=== PATIENT | female | born 1955 | race Two or more races ===

== ENCOUNTER 2016-04-22 00:45 | Inpatient (IN) | payer MEDICAID ==
[2016-04-22] VITALS (52 sets, daily range): BP systolic 87–123; BP diastolic 43–81
[~2016-04-22] VITALS: Ht 160 cm; Wt 59.9 kg
[~2016-04-22 00:45] MED LIST: ACID1TAB12 PO; AMIN30LI4 PO; AMLO10TA2 PO; AMOX-430 PO; ATOR40TA PO; BLOO-668 IN; CALC-108 PO; CALC667C PO; DEXT15DR6 EACHEYE; HYDR-3028 PO; INSU100V27 SQ; INSU3INS6 SQ; LACT10SO PO; LEVO200T8 PO; METO25TA6 PO; MINO2.5T2 PO; PANT20TA3 PO
[2016-04-22] MEDS ORDERED: HALOPERIDOL LACTATE INJ 5 MG/ML VIAL IV ONE (01:00)
[2016-04-22] MEDS ORDERED: CEFTRIAXONE 1GM BAG (ER ONLY) 50 ML IV ONE ×2 (01:00→01:06)
[2016-04-22] MEDS ORDERED: VANCOMYCIN 1 GM in IV D5W 250 ML IV ONE (01:00)
[2016-04-22] MEDS ORDERED: HALOPERIDOL LACTATE INJ 5 MG/ML VIAL ONE (01:06)
[2016-04-22] MEDS ORDERED: IV SET PRIMARY 1 EA INFUS.SET MC ONE ×3 (01:06→03:59)
[2016-04-22 01:40] LABS: CALCIUM, SERUM 8.6 mg/dL (8.5-10.1); CREATININE 4.1 mg/dL (0.6-1.3); POTASSIUM 4.5 mmol/L (3.5-5.1)
[2016-04-22] MEDS ORDERED: IV NS 0.9% 500 ML IV ONE ×3 (01:42→09:31)
[2016-04-22 01:44] LABS: TROPONIN I 0.088 ng/mL (0.00-0.056)
[2016-04-22 01:46] LABS: LACTIC ACID 1.1 mmol/L (0.4-2.0)
[2016-04-22 01:51] LABS: HEMATOCRIT 23 % (33-45); HEMOGLOBIN 7.1 g/dL (11.5-14.8); MEAN CORPUSCULAR HEMOGLOBIN 26 PG (26.0-33.0); MEAN CORPUSCULAR HGB CONC 31 g/dl (31.0-36.0); MEAN CORPUSCULAR VOLUME 83 fL (82-100); PLATELET COUNT (AUTO) 585 /CMM (150-450); RED BLOOD CELL COUNT(AUTO) 2.74 MIL/uL (4.0-5.2)
[2016-04-22 01:53] LABS: ALBUMIN 1.6 g/dL (3.4-5.0); BILIRUBIN,DIRECT 0.2 mg/dL (0.0-0.2); BILIRUBIN,TOTAL 0.5 mg/dL (0.2-1.0); INDIRECT BILIRUBIN 0.3 mg/dL (0.0-1.1); TOTAL PROTEIN, SERUM 6.7 g/dL (6.4-8.2)
[2016-04-22] MEDS ORDERED: IV NS 0.9% 1,000 ML BAG IV ONE ×2 (02:00→04:00)
[2016-04-22 02:02] LABS: WHITE BLOOD COUNT (AUTO) 30.8 K/uL (4.3-11.0)
[2016-04-22 02:12] LABS: INR 1.05 (0.87-1.13); PROTHROMBIN TIME 11.3 SECS (9.5-12.7)
[2016-04-22] MEDS ORDERED: IV D5W 250 ML IV ONE (02:29)
[2016-04-22] MEDS ORDERED: IV SET PRIMARY PUMP SET 1 EA INFUS.SET MC ONE ×3 (02:29→09:31)
[2016-04-22] MEDS ORDERED: VANCOMYCIN 1 GM VIAL ONE (02:29)
[2016-04-22 04:13] LABS: ANISOCYTOSIS 1+; BAND % (MANUAL) 2 % (0.0-5.0); BASOPHILS % (MANUAL) 0 % (0.0-2.0); EOSINOPHILS % (MANUAL) 0 % (0-4); HYPOCHROMASIA 1+; LYMPHOCYTES % (MANUAL) 1 % (16-48); PLATELET ESTIMATE INCREASED
[2016-04-22] MEDS ORDERED: IV D5W 500 ML IV ONE (05:01)
[2016-04-22] MEDS ORDERED: NOREPINEPHRINE 4 MG/4 ML AMPUL IV ONE (05:11)
[2016-04-22] MEDS ORDERED: NOREPINEPHRINE 8 MG in IV D5W 500 ML IV PRN ×4 (05:30→10:00)
[2016-04-22] MEDS ORDERED: ONDANSETRON HCL/PF 4 MG/2 ML VIAL IVP PRN (07:30)
[2016-04-22] MEDS ORDERED: OLANZAPINE 10 MG VIAL IM ONE (08:00)
[2016-04-22] MEDS ORDERED: FEE PK DOSING 1 MIN EA MC ONE ×2 (09:10→18:14)
[2016-04-22] MEDS ORDERED: VANCOMYCIN POST DIALYSIS 500MG IV PRN ×2 (09:30)
[2016-04-22] MEDS: PIPERACILLIN /TAZOBACTAM 2.25 G in IV D5W 50 ML IV SCH ×2 (09:30→16:45)
[2016-04-22] MEDS ORDERED: PANTOPRAZOLE 40 MG TABLET.DR PO SCH (09:30)
[2016-04-22] MEDS ORDERED: BLOOD IV SET 1 EA INFUS.SET MC ONE (09:31)
[2016-04-22] MEDS: PANTOPRAZOLE 40 MG VIAL IV SCH (09:34)
[2016-04-22] MEDS ORDERED: SECONDARY IV SET 1 EA INFUS.SET MC ONE (09:36)
[2016-04-22] MEDS: HEPARIN SODIUM, PORCINE 5000 UNITS/1 ML VIAL SQ SCH ×2 (09:41→20:54)
[2016-04-22] MEDS ORDERED: Z GUARD REMEDY 4 OZ OINT TP PRN (10:30)
[2016-04-22 11:05] LABS: PHOSPHORUS 5.8 mg/dL (2.5-4.9)
[2016-04-22] MEDS: NEOMY SULF/BACITRAC ZN/POLY 15 GM TUBE TP SCH (11:21)
[2016-04-22] MEDS ORDERED: PIPERACILLIN /TAZOBACTAM 2.25 G in IV D5W 50 ML IV SCH (12:00)
[2016-04-22] MEDS ORDERED: MORPHINE SULFATE INJ 2 MG/ML DISP.SYRIN IV STA (14:19)
[2016-04-22] MEDS ORDERED: EPOETIN ALFA (10,000 UNIT) 10,000 UNIT/ML VIAL SQ ONE (15:00)
[2016-04-22] MEDS: DAKINS QUARTER STRENGTH (0.125%) 480 ML BOTTLE TOP SCH (16:45)
[2016-04-22] MEDS: SILVER SULFADIAZINE CREAM 25 GM TUBE TP SCH (16:47)
[2016-04-22] MEDS ORDERED: DOSING PER PHARMACY-AMIKACI IV XX PRN (18:00)
[2016-04-22] MEDS ORDERED: HEPARIN SODIUM, PORCINE 5000 UNITS/1 ML VIAL IV PRN (19:00)
[2016-04-22] MEDS ORDERED: AMIKACIN 400 MG in IV D5W 100 ML IV ONE (19:00)
[2016-04-22] MEDS ORDERED: HEPARIN SODIUM, PORCINE 1000 UNIT/1 ML VIAL IV ONE (19:00)
[2016-04-22] MEDS ORDERED: VANCOMYCIN 500 MG in IV D5W 100 ML IV PRN (21:00)
[2016-04-23] VITALS (25 sets, daily range): BP systolic 88–144; BP diastolic 26–73
[2016-04-23] MEDS: PIPERACILLIN /TAZOBACTAM 2.25 G in IV D5W 50 ML IV SCH ×3 (00:53→17:03)
[2016-04-23] MEDS: diphenhydrAMINE HCL ELIX 25 MG/10 ML UDC PO PRN (00:53)
[2016-04-23 04:50] LABS: BILIRUBIN,TOTAL 0.5 mg/dL (0.2-1.0); CALCIUM, SERUM 7.6 mg/dL (8.5-10.1); CREATININE 3.5 mg/dL (0.6-1.3); PHOSPHORUS 3.8 mg/dL (2.5-4.9); POTASSIUM 3.7 mmol/L (3.5-5.1); TOTAL PROTEIN, SERUM 5.8 g/dL (6.4-8.2)
[2016-04-23 04:57] LABS: DIFF TOTAL % 100 %; EOSINOPHILS # (AUTO) 0.1 /CMM (0.0-0.7); EOSINOPHILS % (AUTO) 0.5 % (0.0-6.0); HEMATOCRIT 26 % (33-45); HEMOGLOBIN 8.6 g/dL (11.5-14.8); LYMPHOCYTES # (AUTO) 0.5 /CMM (0.8-4.8); MEAN CORPUSCULAR HEMOGLOBIN 28 PG (26.0-33.0); MEAN CORPUSCULAR HGB CONC 33 g/dl (31.0-36.0); MEAN CORPUSCULAR VOLUME 86 fL (82-100); MONOCYTES # (AUTO) 0.9 /CMM (0.1-1.30); MONOCYTES % (AUTO) 3.4 % (2.0-12.0); NEUTROPHILS # (AUTO) 25.3 /CMM (1.8-8.9); NEUTROPHILS % (AUTO) 94.1 % (43.0-81.0); PLATELET COUNT (AUTO) 389 /CMM (150-450); RED BLOOD CELL COUNT(AUTO) 3.05 MIL/uL (4.0-5.2); WHITE BLOOD COUNT (AUTO) 26.9 K/uL (4.3-11.0)
[2016-04-23 05:05] LABS: ALBUMIN 1.4 g/dL (3.4-5.0)
[2016-04-23 05:47] LABS: ANISOCYTOSIS 1+; BAND % (MANUAL) 8 % (0.0-5.0); BASOPHILS % (MANUAL) 0 % (0.0-2.0); EOSINOPHILS % (MANUAL) 1 % (0-4); LYMPHOCYTES % (MANUAL) 2 % (16-48); PLATELET ESTIMATE INCREASED
[2016-04-23] MEDS: PANTOPRAZOLE 40 MG VIAL IV SCH (08:29)
[2016-04-23] MEDS: HEPARIN SODIUM, PORCINE 5000 UNITS/1 ML VIAL SQ SCH ×2 (08:29→20:31)
[2016-04-23] MEDS: DAKINS QUARTER STRENGTH (0.125%) 480 ML BOTTLE TOP SCH ×2 (08:30→17:04)
[2016-04-23] MEDS: SILVER SULFADIAZINE CREAM 25 GM TUBE TP SCH ×2 (08:30→17:04)
[2016-04-23] MEDS: NEOMY SULF/BACITRAC ZN/POLY 15 GM TUBE TP SCH (08:30)
[2016-04-23] MEDS ORDERED: *INSULIN REGULAR(HUMULIN R)HUM 100 UNIT/ML VIAL SQ PRN (09:30)
[2016-04-23] MEDS ORDERED: DEXTROSE 50%-WATER 50 ML DISP.SYRIN IV PRN (09:30)
[2016-04-23] MEDS: BLOOD SUGAR DIAGNOSTIC 1 EACH STRIP VI SCH ×4 (11:36→21:49)
[2016-04-23] MEDS: INSULIN REGULAR, HUMAN 100 UNIT/ML 3 ML VIAL SQ PRN ×2 (11:39→17:22)
[2016-04-23] MEDS: LACTOBACILLUS RHAMNOSUS GG 1 EACH CAP.SPRINK PO SCH (17:03)
[2016-04-23] MEDS ORDERED: AMIKACIN 300 MG in IV D5W 100 ML IV PRN (19:00)
[2016-04-23] MEDS: HYDROCODONE/APAP 5/325MG 1 EACH TABLET PO PRN (20:30)
[2016-04-24] VITALS (20 sets, daily range): BP systolic 101–150; BP diastolic 51–70
[2016-04-24] MEDS ORDERED: IV NS 0.9% 250 ML IV ONE ×2 (00:49→21:30)
[2016-04-24] MEDS: PIPERACILLIN /TAZOBACTAM 2.25 G in IV D5W 50 ML IV SCH ×2 (00:53→08:34)
[2016-04-24] MEDS: diphenhydrAMINE HCL ELIX 25 MG/10 ML UDC PO PRN (00:58)
[2016-04-24] MEDS ORDERED: IV NS 0.9% 250 ML IV PRN (01:00)
[2016-04-24] MEDS: HYDROCODONE/APAP 5/325MG 1 EACH TABLET PO PRN ×2 (03:27→13:13)
[2016-04-24 05:28] LABS: CALCIUM, SERUM 7.7 mg/dL (8.5-10.1); CREATININE 4.1 mg/dL (0.6-1.3); PHOSPHORUS 3.6 mg/dL (2.5-4.9)
[2016-04-24 05:33] LABS: DIFF TOTAL % 100 %; EOSINOPHILS # (AUTO) 0.4 /CMM (0.0-0.7); HEMATOCRIT 26 % (33-45); HEMOGLOBIN 8.7 g/dL (11.5-14.8); LYMPHOCYTES % (AUTO) 5.2 % (20.0-44.0); MEAN CORPUSCULAR HEMOGLOBIN 28 PG (26.0-33.0); MEAN CORPUSCULAR HGB CONC 33 g/dl (31.0-36.0); MEAN CORPUSCULAR VOLUME 85 fL (82-100); MONOCYTES # (AUTO) 0.8 /CMM (0.1-1.30); MONOCYTES % (AUTO) 3.8 % (2.0-12.0); NEUTROPHILS # (AUTO) 17.8 /CMM (1.8-8.9); PLATELET COUNT (AUTO) 330 /CMM (150-450); RED BLOOD CELL COUNT(AUTO) 3.07 MIL/uL (4.0-5.2)
[2016-04-24 06:13] LABS: ANISOCYTOSIS 1+; PLATELET ESTIMATE ADEQUATE
[2016-04-24] MEDS: BLOOD SUGAR DIAGNOSTIC 1 EACH STRIP VI SCH ×4 (07:33→22:58)
[2016-04-24] MEDS: PANTOPRAZOLE 40 MG VIAL IV SCH (08:31)
[2016-04-24] MEDS: LACTOBACILLUS RHAMNOSUS GG 1 EACH CAP.SPRINK PO SCH ×2 (08:32→17:28)
[2016-04-24] MEDS: HEPARIN SODIUM, PORCINE 5000 UNITS/1 ML VIAL SQ SCH ×2 (08:32→22:08)
[2016-04-24] MEDS: DAKINS QUARTER STRENGTH (0.125%) 480 ML BOTTLE TOP SCH ×2 (08:34→17:28)
[2016-04-24] MEDS: NEOMY SULF/BACITRAC ZN/POLY 15 GM TUBE TP SCH (08:34)
[2016-04-24] MEDS: SILVER SULFADIAZINE CREAM 25 GM TUBE TP SCH ×2 (08:34→17:28)
[2016-04-24] MEDS ORDERED: IV NS 0.9% 1,000 ML BAG IV ONE (09:17)
[2016-04-24] MEDS ORDERED: IV NS 0.9% 1,000 ML BAG IV PRN (09:30)
[2016-04-24] MEDS: INSULIN REGULAR, HUMAN 100 UNIT/ML 3 ML VIAL SQ PRN (11:54)
[2016-04-24] MEDS ORDERED: EPOETIN ALFA (10,000 UNIT) 10,000 UNIT/ML VIAL SQ ONE (15:00)
[2016-04-24] MEDS ORDERED: RIFAMPIN 600 MG in IV NS 0.9% 100 ML IV SCH (20:00)
[2016-04-24] MEDS ORDERED: SECONDARY IV SET 1 EA INFUS.SET MC ONE ×2 (21:28→22:32)
[2016-04-24] MEDS ORDERED: IV SET PRIMARY PUMP SET 1 EA INFUS.SET MC ONE (21:30)
[2016-04-24] MEDS: METRONIDAZOLE 500MG/ NS 100ML 500 MG in PREMIX 1 EA IV SCH (21:40)
[2016-04-25] MEDS: HYDROCODONE/APAP 5/325MG 1 EACH TABLET PO PRN (02:39)
[2016-04-25] MEDS: METRONIDAZOLE 500MG/ NS 100ML 500 MG in PREMIX 1 EA IV SCH ×2 (05:05→13:15)
[2016-04-25] MEDS: BLOOD SUGAR DIAGNOSTIC 1 EACH STRIP VI SCH ×3 (06:07→17:14)
[2016-04-25 07:58] LABS: BASOPHILS % (AUTO) 0.1 % (0.0-2.0); DIFF TOTAL % 100 %; EOSINOPHILS # (AUTO) 0.3 /CMM (0.0-0.7); EOSINOPHILS % (AUTO) 1.3 % (0.0-6.0); HEMATOCRIT 27 % (33-45); HEMOGLOBIN 8.6 g/dL (11.5-14.8); LYMPHOCYTES # (AUTO) 1.1 /CMM (0.8-4.8); LYMPHOCYTES % (AUTO) 5.3 % (20.0-44.0); MEAN CORPUSCULAR HEMOGLOBIN 28 PG (26.0-33.0); MEAN CORPUSCULAR HGB CONC 33 g/dl (31.0-36.0); MEAN CORPUSCULAR VOLUME 86 fL (82-100); MONOCYTES # (AUTO) 0.8 /CMM (0.1-1.30); MONOCYTES % (AUTO) 3.8 % (2.0-12.0); NEUTROPHILS # (AUTO) 18.7 /CMM (1.8-8.9); NEUTROPHILS % (AUTO) 89.5 % (43.0-81.0); PLATELET COUNT (AUTO) 277 /CMM (150-450); RED BLOOD CELL COUNT(AUTO) 3.08 MIL/uL (4.0-5.2); WHITE BLOOD COUNT (AUTO) 20.9 K/uL (4.3-11.0)
[2016-04-25 08:00] VITALS: BP 130/63
[2016-04-25 08:10] LABS: CALCIUM, SERUM 7.4 mg/dL (8.5-10.1); CREATININE 2.9 mg/dL (0.6-1.3); POTASSIUM 3.7 mmol/L (3.5-5.1)
[2016-04-25] MEDS: PANTOPRAZOLE 40 MG VIAL IV SCH (08:34)
[2016-04-25] MEDS: LACTOBACILLUS RHAMNOSUS GG 1 EACH CAP.SPRINK PO SCH ×2 (08:34→17:08)
[2016-04-25] MEDS: HEPARIN SODIUM, PORCINE 5000 UNITS/1 ML VIAL SQ SCH (08:35)
[2016-04-25] MEDS: DAKINS QUARTER STRENGTH (0.125%) 480 ML BOTTLE TOP SCH ×2 (08:36→17:06)
[2016-04-25] MEDS: NEOMY SULF/BACITRAC ZN/POLY 15 GM TUBE TP SCH (08:36)
[2016-04-25] MEDS: SILVER SULFADIAZINE CREAM 25 GM TUBE TP SCH ×2 (08:37→17:07)
[2016-04-25 16:00] VITALS: BP 111/55
== END 2016-04-25 19:30 | DRG 720 ==
LOC: ER 00:46 → ICU 06:33 → MED 04-24 16:51
PROVIDERS: ADMIT Internal Medicine; ATTEND Internal Medicine
PROC: 5A1D60Z (ICD-10-PCS; principal; 2016-04-22)
PROC: 30233N1 Transfusion of Nonautologous Red Blood Cells into Peripheral Vein, Percutaneous Approach (ICD-10-PCS; principal; 2016-04-22)
PROC: 0H9NXZZ Drainage of Left Foot Skin, External Approach (ICD-10-PCS; principal; 2016-04-22)
PROC: 0H9MXZZ Drainage of Right Foot Skin, External Approach (ICD-10-PCS; principal; 2016-04-22)
DX: A41.9 Sepsis, unspecified organism (principal); I21.4 Non-ST elevation (NSTEMI) myocardial infarction; R65.21 Severe sepsis with septic shock; E46 Unspecified protein-calorie malnutrition; N18.6 End stage renal disease; I13.0 Hypertensive heart and chronic kidney disease with heart failure and stage 1 through stage 4 chronic kidney disease, or unspecified chronic kidney disease; L03.115 Cellulitis of right lower limb; I50.9 Heart failure, unspecified; E87.1 Hypo-osmolality and hyponatremia; D63.8 Anemia in other chronic diseases classified elsewhere; E78.5 Hyperlipidemia, unspecified; E11.65 Type 2 diabetes mellitus with hyperglycemia; E11.52 Type 2 diabetes mellitus with diabetic peripheral angiopathy with gangrene; E11.22 Type 2 diabetes mellitus with diabetic chronic kidney disease; I25.10 Atherosclerotic heart disease of native coronary artery without angina pectoris; K21.9 Gastro-esophageal reflux disease without esophagitis; E83.51 Hypocalcemia; E03.9 Hypothyroidism, unspecified; L02.612 Cutaneous abscess of left foot; L02.611 Cutaneous abscess of right foot; Z99.2 Dependence on renal dialysis; I73.9 Peripheral vascular disease, unspecified; L02.619 Cutaneous abscess of unspecified foot; L03.116 Cellulitis of left lower limb; M85.80 Other specified disorders of bone density and structure, unspecified site
CPT/HCPCS: 36415; 70450-TC; 71010-TC; 73630-TC; 80048-TC; 80053-TC; 80061-TC; 80076-TC; 80150; 80202-TC; 82140-TC; 82962-TC; 83605-TC; 83735-TC; 83880; 84100-TC; 84484-TC; 85025-TC; 85730-TC; 86850-TC; 86921-TC; 87040-TC; 87070-TC; 87081-TC; 87400; 90935-TC; 93307-TC; A4216; A4606; A6402; A6403; C1751; C9113; J0278; J0696; J0885; J1630; J1644; J1815; J2270; J2543; J3370; J3490; J7030; J7040; J7050; J7060; P9016-BL; Q0163; Z7610

== ENCOUNTER 2021-01-17 02:33 | Inpatient (IN) | payer MEDICAID ==
[2021-01-17] VITALS (8 sets, daily range): BP systolic 98–130; BP diastolic 45–72
[~2021-01-17] VITALS: Ht 147.3 cm; Wt 64.9 kg
[~2021-01-17 02:33] MED LIST changes: +AMLO-213 PO; -AMLO10TA2 PO; -CALC-108 PO; +CALC-261 PO; -HYDR-3028 PO; +HYDR50TA61 PO; -LACT10SO PO; +LACT10SO3 PO; +PANT20TA17 PO; -PANT20TA3 PO
[2021-01-17] MEDS ORDERED: IV NS 0.9% 500 ML BAG IV ONE (03:00)
[2021-01-17] MEDS ORDERED: PANTOPRAZOLE 80 MG in IV NS 0.9% 100 ML IV ONE (03:00)
--- NOTE | 2021-01-17 03:00 | NUR ---
pt bibra c/o blood in the stool, pt a/a/o x4, placed on monitor. 2 iv lines inserted.
[2021-01-17] MEDS ORDERED: PANTOPRAZOLE 40 MG VIAL ONE (03:11)
[2021-01-17] MEDS ORDERED: AMIODARONE 150 MG/3 ML VIAL IV ONE ×3 (03:16→03:30)
[2021-01-17 03:49] LABS: BASOPHILS % (AUTO) 0.5 % (0.0-2.0); EOSINOPHILS % (AUTO) 1.3 % (0.0-6.0); HEMATOCRIT 23 % (33-45); HEMOGLOBIN 7.4 g/dL (11.5-14.8); LYMPHOCYTES # (AUTO) 1.1 K/uL (0.8-4.8); LYMPHOCYTES % (AUTO) 23.1 % (20.0-44.0); MEAN CORPUSCULAR HGB CONC 32 g/dl (31.0-36.0); MEAN CORPUSCULAR VOLUME 92 fL (82-100); MONOCYTES # (AUTO) 0.4 K/uL (0.1-1.30); MONOCYTES % (AUTO) 8.7 % (2.0-12.0); NEUTROPHILS # (AUTO) 3.2 K/uL (1.8-8.9); NEUTROPHILS % (AUTO) 66.4 % (43.0-81.0); PLATELET COUNT (AUTO) 199 K/uL (150-450); RED BLOOD CELL COUNT(AUTO) 2.49 MIL/uL (4.0-5.2); WHITE BLOOD COUNT (AUTO) 4.8 K/uL (4.3-11.0)
[2021-01-17] MEDS ORDERED: ZOLP5TAB8 PO (04:02)
[2021-01-17] MEDS ORDERED: LEVO50TA8 PO (04:02)
[2021-01-17] MEDS ORDERED: OMEP40CA21 PO (04:02)
[2021-01-17] MEDS ORDERED: MIDO2.5T PO (04:02)
[2021-01-17] MEDS ORDERED: ALEN70TA80 PO (04:02)
[2021-01-17] MEDS ORDERED: APIX5TAB PO (04:02)
[2021-01-17 04:04] LABS: CALCIUM, SERUM 6.2 mg/dL (8.5-10.1); CARBON DIOXIDE 28 mmol/L (21-32); CHLORIDE 95 mmol/L (98-107); CREATININE 5.3 mg/dL (0.6-1.3); GLUCOSE 165 mg/dL (74-106); POTASSIUM 6.1 mmol/L (3.5-5.1); SODIUM SERUM 136 mmol/L (136-145); UREA NITROGEN, BLOOD 54 mg/dL (7-18)
--- NOTE | 2021-01-17 04:11 | NUR ---
SALENAID SWABBED, SENT TO LAB.
[2021-01-17 04:17] LABS: ALANINE AMINOTRANSFERASE 17 U/L (12-78); ALBUMIN 3.1 g/dL (3.4-5.0); ALKALINE PHOSPHATASE 298 U/L (46-116); ASPARTATE AMINOTRANSFERASE 17 U/L (15-37); BILIRUBIN,DIRECT 0.2 mg/dL (0.0-0.2); BILIRUBIN,TOTAL 0.3 mg/dL (0.2-1.0); LIPASE 123 U/L (73-393); TOTAL PROTEIN, SERUM 6.7 g/dL (6.4-8.2)
[2021-01-17 04:28] LABS: MAGNESIUM 1.9 mg/dL (1.8-2.4); PHOSPHORUS 6.7 mg/dL (2.5-4.9)
[2021-01-17] MEDS ORDERED: DEXTROSE 50%-WATER 50 ML DISP.SYRIN IV ONE (04:30)
[2021-01-17] MEDS ORDERED: SODIUM BICARBONATE SYR 50 MEQ/50 ML DISP.SYRIN IV ONE (04:30)
[2021-01-17] MEDS ORDERED: SODIUM POLYSTYRENE SULFONATE 15 G/60 ML BOTTLE PO ONE (04:30)
[2021-01-17] MEDS ORDERED: INSULIN REGULAR, HUMAN 100 UNIT/ML 10 ML VIAL IV ONE (04:30)
[2021-01-17] MEDS ORDERED: SODIUM POLYSTYRENE SULFONATE 15 G/60 ML BOTTLE ONE (04:44)
[2021-01-17] MEDS ORDERED: Sodium Bicarbonate 50 MEQ/50 ML VIAL IV ONE (04:44)
[2021-01-17] MEDS ORDERED: DEXTROSE 50%-WATER 50 ML DISP.SYRIN ONE (04:44)
[2021-01-17] MEDS ORDERED: INSULIN REGULAR, HUMAN 100 UNIT/ML 10 ML VIAL ONE (04:45)
[2021-01-17] MEDS ORDERED: SODIUM BICARBONATE SYR 50 MEQ/50 ML DISP.SYRIN ONE (04:53)
--- NOTE | 2021-01-17 05:14 | NUR ---
DR QASIM WATTS
--- NOTE | 2021-01-17 05:20 | NUR ---
DR MEDINA ON THE PHONE W/ DR TRIPP
[2021-01-17 05:31] LABS: LYMPHOCYTES % (MANUAL) 25 % (16-48); MONOCYTES % (MANUAL) 6 % (0-11.0); NEUTROPHILS % (MANUAL) 68 (42-76); REACTIVE LYMPHOCYTES 1 % (0-0)
[2021-01-17] MEDS ORDERED: FERR325T23 PO (05:34)
[2021-01-17] MEDS ORDERED: CALC1POW43 PO (05:34)
[2021-01-17] MEDS ORDERED: CALC-494 PO ×2 (05:34)
[2021-01-17] MEDS ORDERED: AMIN30LI27 PO (05:34)
[2021-01-17] MEDS ORDERED: INSU100V7 SQ (05:34)
--- NOTE | 2021-01-17 06:30 | NUR ---
RN NOTE RECEIVED PATIENT VIA GURNEY. TRANSFERRED TO BED WITH NO INJURY. A/OX3, YAKUT SPEAKING. TOLERATING ROOM AIR. RESPIRATIONS ARE EVEN AND UNLABORED. NO S/S SOB NOTED. NO C/O PAIN AT THIS TIME. IN NO APPARENT DISTRESS. EXTERNAL TELE MONITOR APPLIED, IV ACCESS IN RIGHT HAND #20 AND RAC#20 PATENT AND SALINE LOCKED. BED IS LOW AND LOCKED, HOB FLAT, SIDE RAILS UP X2, CAROLE LIGHT WITHIN REACH, INFORMED ON USE. WILL ENDORSE TO ONCOMING SHIFT.
--- NOTE | 2021-01-17 06:31 | NUR ---
report given to lamine and pt transferred per acls protocol.
--- NOTE | 2021-01-17 06:35 | NUR ---
RN NOTE WAS INFORMED BY OVERNIGHT CAREGIVERAMBER OSWALD THAT PATIENT IS POSITIVE FOR ANTIGENS IN THE BLOOD AND WE ARE AWAITING BLOOD ROM [facility].
[2021-01-17] MEDS ORDERED: INSULIN REGULAR, HUMAN 100 UNIT/ML 3 ML VIAL SQ PRN ×2 (07:00→07:30)
[2021-01-17] MEDS ORDERED: DEXTROSE 50%-WATER 50 ML DISP.SYRIN IV PRN ×4 (07:00→15:00)
[2021-01-17] MEDS ORDERED: DEXTROSE 50%-WATER 50 ML DISP.SYRIN IV SCH ×2 (07:16→07:17)
[2021-01-17] MEDS ORDERED: FOLI0.8T2 PO (07:43)
[2021-01-17] MEDS ORDERED: ASPI-1169 PO (07:43)
[2021-01-17] MEDS ORDERED: INSU100V36 SQ (07:43)
[2021-01-17] MEDS ORDERED: LOPE2CAP PO (07:43)
[2021-01-17] MEDS ORDERED: NA P133E RC (07:43)
[2021-01-17] MEDS ORDERED: INSU100I26 SQ ×2 (07:43)
--- NOTE | 2021-01-17 07:45 | NUR ---
OPERATING MANAGER OPENING NOTE RECEIVED PT A/O X 4 RESTING IN BED ON RA WITH NO S/SX OF RESPIRATORY DISTRESS. PT IS ENGLISH SPEAKING, HOWEVER ABLE TO UNDERSTAND SOME BENGALI. PT IS NPO EXCEPT MEDS. PT HAS A R HAND 20G FLUSHED, PATENT, WITH DRESSING IN TACT AND R AC 20 G FLUSHED, PATENT WITH DRESSING IN TACT. PT ORIENTED TO ROOM, SAFETY MEASURES IN PLACE WITH BED IN LOWEST LOCKED POSITION, CALL LIGHT WITHIN REACH AND BED ALARM ON.
[2021-01-17] MEDS ORDERED: METOPROLOL TARTRATE 25 MG TABLET PO SCH (09:00)
[2021-01-17] MEDS ORDERED: BLOOD SUGAR DIAGNOSTIC 1 EACH STRIP IN SCH ×2 (09:00→12:00)
--- NOTE | 2021-01-17 09:30 | NUR ---
DR. YOON WANTS CHANGE ATTENDING TO DR. PERKINS,ADMITTING MADE AWARE.
--- NOTE | 2021-01-17 09:35 | NUR ---
RN NOTE PT HAS 2 EPISODES OF BLOODY STOOLS. MD NOTIFIED.
--- NOTE | 2021-01-17 10:00 | NUR ---
PORTFOLIO DIRECTOR ERMIAS CALLED VERBALIZED THAT PATIENT IS NOT UNDER DR. PERKINS IT IS EPIC.DR. YOON SPOKE WITH REMIAS ON PHONE.
--- NOTE | 2021-01-17 11:00 | NUR ---
one unit of blood given with hd md aware.
--- NOTE | 2021-01-17 11:05 | NUR ---
DR. YOON MADE AWARE CHANGE TO EPIC PER DR. PERKINS AND DR. BRIGGS.
[2021-01-17] MEDS: PANTOPRAZOLE 40 MG VIAL IV SCH ×2 (12:01→21:12)
--- NOTE | 2021-01-17 13:23 | NUR ---
message left to dr. grande voicemail regarding consult.
--- NOTE | 2021-01-17 14:00 | NUR ---
PATIENT UNABLE TO DRAW BY DELIVERY ENGINEER ,WILL SEND ANOTHER MEDICINE TECH TO DRAW BLOOD.
--- NOTE | 2021-01-17 14:32 | NUR ---
SPOKE WITH DR. YOON AND REFUSED TO GIVE ORDERS VERBALIZED IT IS DR. PERKINS PATIENT PER INSURANCE.
--- NOTE | 2021-01-17 14:33 | NUR ---
DR. PERKINS WILL SEE PATIENT IN AM AND GAVE ORDERS.
--- NOTE | 2021-01-17 14:33 | NUR ---
PATIENT COMPLAIN OF BEING STICK MULTIPLE TIMES DR. PERKINS CANCEL H/H Q4.
--- NOTE | 2021-01-17 14:46 | NUR ---
BRE BERG NOTIFIED REGARDING CHANGING OF MD FOR PT. 3X ,MADE AWARE OF SITUATION.
[2021-01-17] MEDS ORDERED: IV D5/ 0.9% NACL 1,000 ML IV SCH (15:00)
[2021-01-17] MEDS ORDERED: ZOLPIDEM TARTRATE 5 MG TABLET PO PRN (16:00)
[2021-01-17] MEDS: IV 1/2NS 1000 ML 1,000 ML IV PRN (16:03)
[2021-01-17] MEDS: SOD FERRIC GLUC 125 MG in IV NS 0.9% 100 ML IV SCH (16:43)
[2021-01-17] MEDS ORDERED: MIDODRINE HCL (5MG) 5 MG TABLET PO SCH (17:00)
[2021-01-17] MEDS: METOPROLOL TARTRATE 25 MG TABLET PO SCH (17:05)
[2021-01-17] MEDS: BLOOD SUGAR DIAGNOSTIC 1 EACH STRIP IN SCH ×2 (17:06→23:08)
--- NOTE | 2021-01-17 17:14 | NUR ---
[facility] H/H RESULT STILL PENDING.
[2021-01-17 17:20] LABS: HEMATOCRIT 26 % (33-45); HEMOGLOBIN 8.6 g/dL (11.5-14.8); MEAN CORPUSCULAR HGB CONC 33 g/dl (31.0-36.0); MEAN CORPUSCULAR VOLUME 91 fL (82-100); PLATELET COUNT (AUTO) 178 K/uL (150-450); RED BLOOD CELL COUNT(AUTO) 2.85 MIL/uL (4.0-5.2); WHITE BLOOD COUNT (AUTO) 3.3 K/uL (4.3-11.0)
--- NOTE | 2021-01-17 17:26 | NUR ---
RELAYED H/H .09/[address] GREGORIO DIA SECOND UNIT PRBC.
--- NOTE | 2021-01-17 18:45 | NUR ---
AUTOMATION AND CONTROL ENGINEER CLOSING NOTE PT IS RESTING COMFORTABLY IN SEMI-FOWLERS POSITION RECEIVING 1/2 NS @50ML/HR IN R AC. PT IS AWAITING MIDLINE INSERTION, WILL NOTIFY ONCOMING SHIFT. PT RECEIVED 1 UNIT PRBC AND PER MD ORDER, 2ND UNIT HELD. PT IS NPO EXCEPT MEDS. RECEIVED HEMODIALYSIS AND 2L REMOVED. PT HAD 2 BOWEL MOVEMENTS ON SHIFT. SAFETY MEASURES IN PLACE WITH BED IN LOWEST LOCKED POSITION, SIDE RAILS UP X3, AND CALL LIGHT WITHIN REACH.
--- NOTE | 2021-01-17 19:30 | NUR ---
RN OPENING NOTE RECEIVED PATIENT IN BED. A/OX3 , PERUVIAN SPEAKING. TOLERATING ROOM AIR. RESPIRATIONS ARE EVEN AND UNLABORED. NO S/S SOB NOTED. NO C/O PAIN AT THIS TIME. IN NO APPARENT DISTRESS. EXTERNAL TELE MONITOR READS SINUS RHYTHM. IV ACCESS IN RAC#20 TENDER, INFORMED PATIENT I WILL REMOVE IV. ROXANA MIDLINE PLACED, CONNECTED TO 1/2NSS@50ML/HR. BED IS LOW AND LOCKED, HOB FLAT, SIDE RIALS UP X2, CALL LIGHT WITHIN REACH. INFORMED PATIENT WE NEED TO COLLECT STOOL.
[2021-01-17] MEDS ORDERED: MIDODRINE HCL 2.5 MG TABLET PO SCH (21:00)
[2021-01-17] MEDS: INSULIN GLARGINE, 100 UNIT/ML CARTRIDGE SQ SCH (21:25)
[2021-01-17] MEDS: INSULIN REGULAR, HUMAN 100 UNIT/ML 3 ML VIAL SQ PRN (23:18)
[2021-01-18] VITALS: BP 113/54
[2021-01-18 04:00] VITALS: BP 100/53
[2021-01-18] MEDS: BLOOD SUGAR DIAGNOSTIC 1 EACH STRIP IN SCH ×4 (05:39→23:08)
[2021-01-18] MEDS: INSULIN REGULAR, HUMAN 100 UNIT/ML 3 ML VIAL SQ PRN (05:46)
--- NOTE | 2021-01-18 06:16 | NUR ---
RN CLOSING NOTE PATIENT RESTING IN BED. A/OX3. REMAINS TOLERATING ROOM AIR. NO SOB. NO PAIN. NO DISTRESS. TELE MONITOR READS SINUS RHYTHM/ SINUS TACH. ROXANA MIDLINE RUNNING 1/2NS@50ML/HR. BED REMAINS LOW AND LOCKED, HOB FLAT, SIDE RIALS UP X2, CALL LIGHT WITHIN REACH. WAS NOT ABLE TO COLLECT STOOL NO BM. WILL ENDORSE TO ONCOMING SHIFT
--- NOTE | 2021-01-18 07:30 | NUR ---
COBOL DEVELOPER NOTES RECEIVED PT RESTING IN FLAT POSITION WITH NO S/SX OF RESPIRATORY DISTRESS. PT HAS 1/2 NS RUNNING @50ML/HR IN RUNNING IN ROXANA MIDLINE.
[2021-01-18 08:00] VITALS: BP 134/80
[2021-01-18] MEDS: PANTOPRAZOLE 40 MG VIAL IV SCH ×2 (08:18→21:59)
[2021-01-18] MEDS: CALCIUM ACETATE 667 MG CAP/TAB PO SCH ×3 (08:19→17:35)
[2021-01-18] MEDS: LEVOTHYROXINE SODIUM 50 MCG TABLET PO SCH (08:19)
[2021-01-18] MEDS: METOPROLOL TARTRATE 25 MG TABLET PO SCH ×3 (08:20→17:35)
[2021-01-18 08:59] LABS: BASOPHILS % (AUTO) 0.5 % (0.0-2.0); EOSINOPHILS % (AUTO) 1.3 % (0.0-6.0); HEMATOCRIT 28 % (33-45); HEMOGLOBIN 9.1 g/dL (11.5-14.8); LYMPHOCYTES # (AUTO) 0.6 K/uL (0.8-4.8); LYMPHOCYTES % (AUTO) 21.9 % (20.0-44.0); MEAN CORPUSCULAR HGB CONC 33 g/dl (31.0-36.0); MEAN CORPUSCULAR VOLUME 93 fL (82-100); MONOCYTES # (AUTO) 0.3 K/uL (0.1-1.30); NEUTROPHILS # (AUTO) 1.9 K/uL (1.8-8.9); NEUTROPHILS % (AUTO) 67.3 % (43.0-81.0); PLATELET COUNT (AUTO) 176 K/uL (150-450); RED BLOOD CELL COUNT(AUTO) 2.96 MIL/uL (4.0-5.2); WHITE BLOOD COUNT (AUTO) 2.9 K/uL (4.3-11.0)
--- NOTE | 2021-01-18 09:03 | NUR ---
WOUND CARE CONSULT: PT PRESENTS WITH LEAH SCORE 19 AND SCARRING TO LEFT HIP/PELVIC AREA, PRESENT ON ADMISSION. PT IS ABLE TO REPOSITION HERSELF IN BED. WILL SEE PRN.
[2021-01-18 09:30] LABS: CALCIUM, SERUM 8.1 mg/dL (8.5-10.1); CREATININE 3.7 mg/dL (0.6-1.3); POTASSIUM 4.1 mmol/L (3.5-5.1)
--- NOTE | 2021-01-18 09:30 | NUR ---
WRAPPER SORTER NOTES PT HAD 1 EPISODE OF BLOODY STOOL. CHANGED AND KEPT DRY. PT TAKEN TO CT OF THE ABDOMEN WO CONTRAST.
[2021-01-18 12:00] VITALS: BP 122/65
[2021-01-18] MEDS: DIGOXIN 0.125 MG TABLET PO SCH (12:59)
[2021-01-18 16:00] VITALS: BP 120/51
[2021-01-18] MEDS: SOD FERRIC GLUC 125 MG in IV NS 0.9% 100 ML IV SCH (17:34)
[2021-01-18] MEDS: IV 1/2NS 1000 ML 1,000 ML IV PRN (17:38)
--- NOTE | 2021-01-18 18:42 | NUR ---
SP[employer] MEMBERSHIP ADVISORS NOTE PT RESTING IN SEMI FOWLERS POSITION WITH NO S/SX OF RESPIRATORY DISTRESS. PT HAS 0.45%NS RUNNING @50ML/HR IN ROXANA ML. PT DIET ADVANCED TO CLEAR LIQUIDS, TOLERATING WELL. SAFETY MEASURES IN PLACE WITH BED IN LOWEST LOCKED POSITION, SIDE RAILS UP X2 AND CALL LIGHT WITH IN REACH.
--- NOTE | 2021-01-18 19:20 | NUR ---
RN NOTE PT RECEIVED IN ED. PT IS ON ROOM AIR SHOWING NO S/S OF RESP DISTRESS/SOB. BREATHING EVEN AND UNLABORED. NO SIGNS OF DISTRESS. PT IS A/OX3-4, GERMAN SPEAKING. NSR ON MONITOR. SKIN INTACT. ON CLEAR LIQUID DIET. IV ACCESS NOTED ON RIGHT UPPER ARM MIDLINE. LINE FLUSHED, PATENT, AND INTACT WITH NO SIGNS OF INFILTRATION. ALL SAFETY MEASURES IMPLEMENTED. CALL LIGHT WITHIN REACH. BED ALARM ON. BED LOCKED AND IN LOWEST POSITION. WILL CONTINUE TO MONITOR AND ASSESS FOR ANY CHANGES DURING SHIFT.
[2021-01-18 20:00] VITALS: BP 139/67
[2021-01-18] MEDS: INSULIN GLARGINE, 100 UNIT/ML CARTRIDGE SQ SCH (22:59)
--- NOTE | 2021-01-18 23:10 | NUR ---
RN NOTE INSULIN LANTUS NOT GIVEN DUE TO BLOOD SUGAR BEING 81. POLICEWOMAN ANNETTE MADE AWARE.
[2021-01-19] VITALS: BP 130/59
[2021-01-19 04:00] VITALS: BP 127/51
[2021-01-19] MEDS: BLOOD SUGAR DIAGNOSTIC 1 EACH STRIP IN SCH ×3 (05:21→18:38)
[2021-01-19 07:06] LABS: BASOPHILS % (AUTO) 0.5 % (0.0-2.0); EOSINOPHILS % (AUTO) 1.4 % (0.0-6.0); HEMATOCRIT 25 % (33-45); HEMOGLOBIN 8.3 g/dL (11.5-14.8); LYMPHOCYTES # (AUTO) 0.6 K/uL (0.8-4.8); LYMPHOCYTES % (AUTO) 21.2 % (20.0-44.0); MEAN CORPUSCULAR HGB CONC 33 g/dl (31.0-36.0); MEAN CORPUSCULAR VOLUME 93 fL (82-100); MONOCYTES # (AUTO) 0.3 K/uL (0.1-1.30); MONOCYTES % (AUTO) 10.6 % (2.0-12.0); NEUTROPHILS # (AUTO) 1.9 K/uL (1.8-8.9); NEUTROPHILS % (AUTO) 66.3 % (43.0-81.0); PLATELET COUNT (AUTO) 166 K/uL (150-450); RED BLOOD CELL COUNT(AUTO) 2.71 MIL/uL (4.0-5.2); WHITE BLOOD COUNT (AUTO) 2.9 K/uL (4.3-11.0)
--- NOTE | 2021-01-19 07:14 | NUR ---
RN NOTE NO CHANGES IN PT CONDITION DURING SHIFT. PT IS ON ROOM AIR SHOWING NO S/S OF RESP DISTRESS/SOB. BREATHING EVEN AND UNLABORED. NO SIGNS OF DISTRESS. PT IS A/OX3-4. IV ACCESS NOTED ON RIGHT UPPER ARM MIDLINE. LINE FLUSHED, PATENT, AND INTACT WITH NO SIGNS OF INFILTRATION. ALL DUE MEDS GIVEN ORDERED. PT KEPT CLEAN AND COMFORTABLE. ALL SAFETY MEASURES IMPLEMENTED. CALL LIGHT WITHIN REACH. BED ALARM ON. BED LOCKED AND IN LOWEST POSITION. WILL ENDORSE TO MORNING SHIFT RN FOR LUIS ANGEL.
[2021-01-19 07:17] LABS: CALCIUM, SERUM 7.3 mg/dL (8.5-10.1); CREATININE 4.5 mg/dL (0.6-1.3); POTASSIUM 4.7 mmol/L (3.5-5.1)
[2021-01-19 08:00] VITALS: BP 147/52
[2021-01-19] MEDS: LEVOTHYROXINE SODIUM 50 MCG TABLET PO SCH (09:00)
[2021-01-19] MEDS: CALCIUM ACETATE 667 MG CAP/TAB PO SCH ×3 (09:00→18:29)
[2021-01-19] MEDS: PANTOPRAZOLE 40 MG VIAL IV SCH ×2 (09:01→21:33)
[2021-01-19] MEDS: METOPROLOL TARTRATE 25 MG TABLET PO SCH ×3 (09:02→18:23)
[2021-01-19 12:00] VITALS: BP 136/47
[2021-01-19] MEDS: DIGOXIN 0.125 MG TABLET PO SCH (14:15)
--- NOTE | 2021-01-19 14:19 | NUR ---
PATIENT RESTING IN AND OUT OF LIGHT SLEEP, DIALYSIS PROVIDED UF = 2400, VS AFTER PROCEDURE 140/54 PULSE 90 , ON ROOM AIR NO S/S OF RESP DISTRESS, NO SOB. BREATHING EVEN AND UNLABORED A/OX3-4. IV ACCESS RIGHT UPPER ARM MIDLINE INTACT PATENT FLUSHING WELL, NO SIGNS OF INFILTRATION. ALL DUE MEDS GIVEN ORDERED. PT KEPT CLEAN AND COMFORTABLE. ALL SAFETY MEASURES IMPLEMENTED. CALL LIGHT WITHIN REACH. BED ALARM ON. BED LOCKED AND IN LOWEST POSITION. ALL MEDS GIVEN NO ASPIRATION NOTED WITH PO MEDICATIONS TOLERATING WELL, BED LOW TO FLOOR WHEELS LOCKED, CALL LIGHT IN REACH
[2021-01-19] MEDS: SOD FERRIC GLUC 125 MG in IV NS 0.9% 100 ML IV SCH (15:47)
[2021-01-19 16:00] VITALS: BP 132/68
[2021-01-19] MEDS ORDERED: PEG 3350/NA SULF,BICARB,CL/KCL 4,000 ML BOTTLE PO ONE (16:00)
[2021-01-19] MEDS: INSULIN REGULAR, HUMAN 100 UNIT/ML 3 ML VIAL SQ PRN (18:39)
--- NOTE | 2021-01-19 19:15 | NUR ---
RN NOTES RECEIVED REPORT FROM MORNING NURSE. PATIENT IN BED A/O X 3 NEPALESE SPEAKING. WITH R UA MIDLINE PATENT FLUSHES WELL. WITH ONGOING IVF OF 1/2 NS @ 50CC/HR. ON CLEAR LIQUIDS. WITH L UA FISTULA + THRILL AND BRUIT. ALL SAFETY MEASURES IN PLACE, HOB ELEVATED, BED ON LOWEST POSITION AND LOCKED. CALL LIGHT WITHIN REACH. VITAL SIGNS TAKEN AND RECORDED. WILL CONTINUE TO MONITOR THE PATIENT
[2021-01-19 20:00] VITALS: BP 110/60
[2021-01-19] MEDS: INSULIN GLARGINE, 100 UNIT/ML CARTRIDGE SQ SCH (22:00)
[2021-01-19] MEDS: IV 1/2NS 1000 ML 1,000 ML IV PRN (22:11)
[2021-01-20] VITALS (12 sets, daily range): BP systolic 104–148; BP diastolic 50–72
--- NOTE | 2021-01-20 | NUR ---
RN NOTES BS 104 MG/DL.
[2021-01-20] MEDS: BLOOD SUGAR DIAGNOSTIC 1 EACH STRIP IN SCH ×4 (00:12→18:27)
--- NOTE | 2021-01-20 06:00 | NUR ---
RN NOTES BS 84 MG/DL
--- NOTE | 2021-01-20 06:22 | NUR ---
RN NOTES PATIENT REMAINS STABLE THE WHOLE SHIFT NO SIGNIFICANT CHANGES IN HEALTH CONDITION. NO SOB, NO DISTRESS NO PAIN NOTED THIS SHIFT.ALL DUE MEDS GIVEN ORDERED. STARTED GOLYTELY FOR POSSIBLE COLONOSCOPY TODAY. ALL SAFETY MEASURES IN PLACE, BED ON LOWEST POSITION AND LOCKED. HOB ELEVATED, CALL LIGHT WITHIN REACH. CONSENT SIGNED @ CHART.ALL NEEDS ATTENDED. ENDORSED
[2021-01-20] MEDS: CALCIUM ACETATE 667 MG CAP/TAB PO SCH ×3 (08:14→17:27)
[2021-01-20] MEDS: LEVOTHYROXINE SODIUM 50 MCG TABLET PO SCH (08:14)
[2021-01-20] MEDS: PANTOPRAZOLE 40 MG VIAL IV SCH ×2 (08:49→21:11)
[2021-01-20] MEDS: METOPROLOL TARTRATE 25 MG TABLET PO SCH ×3 (08:50→17:28)
--- NOTE | 2021-01-20 10:48 | NUR ---
PER [facility] PCR NEGATIVE.
[2021-01-20] MEDS ORDERED: ANESTHESIA TRAY IN PYXIS 1 EA TRAY MC ONE (11:24)
[2021-01-20 12:24] LABS: BASOPHILS % (AUTO) 0.5 % (0.0-2.0); EOSINOPHILS % (AUTO) 1.1 % (0.0-6.0); HEMATOCRIT 24 % (33-45); HEMOGLOBIN 8.1 g/dL (11.5-14.8); LYMPHOCYTES # (AUTO) 0.5 K/uL (0.8-4.8); LYMPHOCYTES % (AUTO) 20.2 % (20.0-44.0); MEAN CORPUSCULAR HGB CONC 33 g/dl (31.0-36.0); MEAN CORPUSCULAR VOLUME 92 fL (82-100); MONOCYTES # (AUTO) 0.2 K/uL (0.1-1.30); MONOCYTES % (AUTO) 8.8 % (2.0-12.0); NEUTROPHILS # (AUTO) 1.7 K/uL (1.8-8.9); NEUTROPHILS % (AUTO) 69.4 % (43.0-81.0); PLATELET COUNT (AUTO) 157 K/uL (150-450); RED BLOOD CELL COUNT(AUTO) 2.65 MIL/uL (4.0-5.2); WHITE BLOOD COUNT (AUTO) 2.5 K/uL (4.3-11.0)
--- NOTE | 2021-01-20 12:34 | NUR ---
dr. grande made aware pt. drink half only of golelytely and pt has a bloody stool per md keep npo now.
[2021-01-20 12:38] LABS: CALCIUM, SERUM 7.2 mg/dL (8.5-10.1); CREATININE 3.4 mg/dL (0.6-1.3); POTASSIUM 4.7 mmol/L (3.5-5.1)
[2021-01-20] MEDS: DIGOXIN 0.125 MG TABLET PO SCH (13:00)
[2021-01-20] MEDS: SOD FERRIC GLUC 125 MG in IV NS 0.9% 100 ML IV SCH ×2 (15:40→16:54)
--- NOTE | 2021-01-20 16:54 | NUR ---
PATIENT TRANSFERRED OUT OF UNIT FOR PROCEDURE TO IDENTIFY WHERE GI - BLEED IS AND HELP REPAIR, PATIENT NEW ORDERS ARE CLEAR LIQUID DIET UNTIL FURTHER NOTICE, 1 UNIT OF PRBC TO BE INFUSED TODAY, THIS IS ORDERED WILL CONIRM WHEN READY TO HEMP FIBER TAKER OFF AND PROVIDE WITH AID OF ASSOCIATE PROFESSOR OF GEOGRAPHY AND WITNESS OF OTHER RN TO ENSURE ALL INFORMATION AND MEDICATIONS AND BLOOD IS CORRECT AMOUNT, DOSE, TYPE, AND RUN ON A FILTERED IV LINE. PATIENT IN BED RESTING AND RECEIVED CONSENT SIGN AGREES TO BLOOD TRANSFUSION., CALL LIGHT IN REACH , LAST BS - 99, WILL CONTINUE TO MONITOR
--- NOTE | 2021-01-20 18:16 | NUR ---
SPOKE WITH JONAS FROM BLOOD BANK PATIENT HAS ANTIBODIES NEED TO BE REDRAWN AND SEND TO [facility].MAY NOT BE AVAILABLE TONITE,DR. PERKINS MADE AWARE.NURSING SUP MADE AWARE.
--- NOTE | 2021-01-20 18:28 | NUR ---
PATIENT BS = 109, LAB CALLED BLOOD IS NOT READY FOR HEALTHCARE FINANCIAL ANALYST, PATIENT HAS ANTIGENS IN BLOOD AND MUST BE ORDERED AND DELIVERED FROM [facility], LAB WILL NOTIFY WHEN READY, MD NOTIFIED AND AWARE, WILL ADVISE WHEN BLOOD ARRIVES AND TRANSFUSION OF 1 UNIT PRBC PROCESS BEGINS, WILL ENDORSE TO ONCOMING RN INFORMATION SO TASK IS PERFORMED AND CARRIED OUT IN A TIMELY MANNER. PT CONSUMED ALL DINNER TRAY AND STATED SHE IS FEELING BETTER AFTER PROCEDURE, SHE IS RESTING PEACEFULLY, RUMIDLINE INTACT FLUSHING PATENT, BED LOW TO FLOOR, ALL WHEELS LOCKED FOR SAFETY, CALL LIGHT IN REACH AND INSTRUCTED WITH CONSUMER SERVICES CONSULTANT IN ITALIAN TO PLS USE CALL LIGHT FOR HELP WHEN NEEDED, DEMONSTRATED ABILITY TO DO SO AND COMPLIANT AT THIS TIME.
--- NOTE | 2021-01-20 19:10 | NUR ---
RN NOTES RECEIVED REPORT FROM MORNING NURSE. PATIENT A/O X3 ENGLISH SPEAKING. WITH MIDLINE PATENT FLUSHES WELL NO INFILTRATION NOTED. WITH L UA FISTULA + THRILL, + BRUIT NOTED. WITH ONGOING IVF OF 1/2 @50CC/HR. NO SOB NO DISTRESS NO PAIN NOTED. S/P COLONOSCOPY COMPLEX WITH RESOLUTION CLIPS, CAUTERIZATION WITH GOLD PROBE. ALL SAFETY MEASURES IN PLACE, HOB ELEVATED, BED ON LOWEST POSITION AND LOCKED. CALL LIGHT WITHIN REACH. WILL CONTINUE TO MONITOR CLOSELY
--- NOTE | 2021-01-20 21:19 | NUR ---
RN NOTES STARTED 1 UNIT PRBC TYPE O POSITIVE. VITAL SIGNS TAKE FOLLOWS BP 104/50 OK 94, RR 20, TEMP 97.8. WILL CONTINUE TO MONITOR CLOSELY.
[2021-01-20] MEDS: INSULIN GLARGINE, 100 UNIT/ML CARTRIDGE SQ SCH (22:00)
[2021-01-21] VITALS: BP 110/72
[2021-01-21 00:10] VITALS: BP 110/72
--- NOTE | 2021-01-21 00:10 | NUR ---
RN NOTES BLOOD TRANSFUSION COMPLETED, NO TRANSFUSION REACTION,NO CONGESTION NOTED AT THIS TIME BS 88MG/DL. WILL CONTINUE TO MONITOR THE PATIENT
[2021-01-21] MEDS: BLOOD SUGAR DIAGNOSTIC 1 EACH STRIP IN SCH ×5 (00:15→23:55)
[2021-01-21] MEDS: IV 1/2NS 1000 ML 1,000 ML IV PRN (00:18)
--- NOTE | 2021-01-21 06:43 | NUR ---
RN CLOSING NOTES PATIENT REMAINS STABLE THE WHOLE SHIFT, NO SIGNIFICANT CHANGES IN HEALTH CONDITION. NO SOB, NO DISTRESS, NO PAIN NOTED. PATIENT A/O X3 BELARUSIAN SPEAKING. ALL DUE MEDS GIVEN ORDERED. FOR HD TODAY. S/P BLOOD TRANSFUSION OF 1 UNIT PRBC TYPE O POS. ALL NEEDS ATTENDED PROMPTLY. KEPT CLEAN AND DRY AT ALL TIMES, ALL SAFETY MEASURES IN PLACE AT ALL TIMES, HOB ELEVATED, BED ON LOWEST POSITION AND LOCKED. CALL LIGHT WITHIN REACH. ENDORSED
--- NOTE | 2021-01-21 07:41 | NUR ---
RN OPENING NOTE RECEIVED PATIENT ASLEEP IN BED, EASY TO AROUSE. A/O X 3 TAMAZIGHT SPEAKING. NO S/SX OF DISTRESS NOTED. ON ROOM AIR, TOLERATING WELL. BREATHING IS EVEN AND UNLABORED; NO SOB NOTED. IV ACCESS SERGIO MIDLINE PATENT AND INTACT WITH 1/2 NS RUNNING @50MLS/HR. SAFETY PRECAUTIONS IN PLACE; BED IN LOW POSITION AND LOCKED, SIDE RAILS UP X2, CALL LIGHT WITHIN REACH. WILL CONTINUE TO MONITOR PATIENT.
[2021-01-21 08:00] VITALS: BP 110/72
[2021-01-21] MEDS: PANTOPRAZOLE 40 MG VIAL IV SCH ×2 (08:29→21:21)
[2021-01-21] MEDS: CALCIUM ACETATE 667 MG CAP/TAB PO SCH ×3 (08:29→17:44)
[2021-01-21] MEDS: LEVOTHYROXINE SODIUM 50 MCG TABLET PO SCH (08:29)
[2021-01-21] MEDS: METOPROLOL TARTRATE 25 MG TABLET PO SCH ×3 (08:33→16:20)
--- NOTE | 2021-01-21 10:59 | NUR ---
HAND CUTTER MARCUS MADE AWARE PATIENT DISCHARGE POST HD TODAY,FF. UP WITH HD NURSE WILL DO LATER TODAY,AMBULANCE ON WILL CALL.WILL ALSO DRAW LABS W/ HD PER DR. PERKINS SINCE PT. REFUSING TO BE STICK.
--- NOTE | 2021-01-21 11:01 | NUR ---
RN NOTE PT REFUSING BLOOD DRAW 2X. DR. PERKINS AND CHARGE NURSE, ASHA MADE AWARE. PER DR. PERKINS, COLLECT BLOOD FOR LABS DURING HD.
[2021-01-21] MEDS: DIGOXIN 0.125 MG TABLET PO SCH (12:22)
[2021-01-21] MEDS ORDERED: HYDROCODONE/APAP 5/325MG TABLET PO PRN (14:00)
[2021-01-21] MEDS ORDERED: SOD FERRIC GLUC 125 MG in IV NS 0.9% 100 ML IV SCH (14:00)
--- NOTE | 2021-01-21 15:45 | NUR ---
STILL AWAITS HD,PER CM AMBULANCE WILL CALL.
[2021-01-21 16:00] VITALS: BP 102/78
[2021-01-21 18:00] LABS: CALCIUM, SERUM 6.8 mg/dL (8.5-10.1); CREATININE 3.4 mg/dL (0.6-1.3); POTASSIUM 4.2 mmol/L (3.5-5.1)
--- NOTE | 2021-01-21 18:27 | NUR ---
H/H PENDING RESULT PER LAB WILL CONTINUE TO FF UP. PT. TOLERATING HEMODIALYSIS.
--- NOTE | 2021-01-21 18:55 | NUR ---
RAIL EQUIPMENT OPERATOR NOTE PATIENT ASLEEP IN BED, EASY TO AROUSE. A/O X 3 BURMESE SPEAKING. CURRENTLY HAVING DIALYSIS AT THIS TIME. HD NURSE AT BEDSIDE. NO S/SX OF DISTRESS NOTED. ON ROOM AIR, TOLERATING WELL. BREATHING IS EVEN AND UNLABORED; NO SOB NOTED. IV ACCESS SERGIO MIDLINE PATENT AND INTACT. SAFETY MEASURES MAINTAINED. CALL LIGHT IS WITHIN REACH. WILL ENDORSE CONTINUITY OF CARE TO ONCOMING SHIFT.
--- NOTE | 2021-01-21 18:57 | NUR ---
RN CLOSING NOTE PATIENT ASLEEP IN BED, EASY TO AROUSE. A/O X 3 BELGIAN SPEAKING. CURRENTLY HAVING DIALYSIS AT THIS TIME. HD NURSE AT BEDSIDE. NO S/SX OF DISTRESS NOTED. ON ROOM AIR, TOLERATING WELL. BREATHING IS EVEN AND UNLABORED; NO SOB NOTED. IV ACCESS SERGIO MIDLINE PATENT AND INTACT. SAFETY MEASURES MAINTAINED. CALL LIGHT IS WITHIN REACH. WILL ENDORSE CONTINUITY OF CARE TO ONCOMING SHIFT.
[2021-01-21 19:05] LABS: BASOPHILS % (AUTO) 0.3 % (0.0-2.0); HEMATOCRIT 27 % (33-45); HEMOGLOBIN 9.1 g/dL (11.5-14.8); LYMPHOCYTES # (AUTO) 0.3 K/uL (0.8-4.8); LYMPHOCYTES % (AUTO) 5.1 % (20.0-44.0); MEAN CORPUSCULAR HGB CONC 33 g/dl (31.0-36.0); MEAN CORPUSCULAR VOLUME 89 fL (82-100); MONOCYTES # (AUTO) 0.2 K/uL (0.1-1.30); MONOCYTES % (AUTO) 3.4 % (2.0-12.0); NEUTROPHILS # (AUTO) 6.3 K/uL (1.8-8.9); NEUTROPHILS % (AUTO) 91.2 % (43.0-81.0); PLATELET COUNT (AUTO) 146 K/uL (150-450); RED BLOOD CELL COUNT(AUTO) 3.08 MIL/uL (4.0-5.2); WHITE BLOOD COUNT (AUTO) 6.9 K/uL (4.3-11.0)
--- NOTE | 2021-01-21 19:45 | NUR ---
MS RN NOTE LATEST LAB RESULT CAME AND INFORMED TO DR PERKINS. PER DR RAMSEY TO [place]. CALLED [employer] BUT NO ONE PICKING UP THE PHONE. WILL TRY LATER.
[2021-01-21 20:30] VITALS: BP 123/49
--- NOTE | 2021-01-21 20:30 | NUR ---
MS RN NOTE STILL UNABLE TO REACH PHILL KEATING RN FOR THE REPORT. PT IN BED A/O X 4, SETSWANA SPEAKING. NO DISTRESS OR DISCOMFORT NOTED. DENIES PAIN. NOTED PT WITH HIGH FEVER 101.4 HR 148. 02 SAT 92% ROOM AIR. INFORMED DR PERKINS REGARDING VS. GAVE NEW ORDER TO DO STAT XRAY AND TYELNOL 650 MG PO Q6H PRN. ORDER NOTED AND CARRIED OUT. BODY COOLING MEASURES APPLIED. CONTINUE TO MONITOR HER.
[2021-01-21] MEDS ORDERED: ACETAMINOPHEN 650 MG/20.3 ML UDC NG PRN (21:00)
[2021-01-21] MEDS ORDERED: ACETAMINOPHEN 650 MG/20.3 ML UDC PO PRN (21:00)
[2021-01-21] MEDS ORDERED: ACETAMINOPHEN 325 MG TABLET PO PRN (21:30)
--- NOTE | 2021-01-21 21:30 | NUR ---
MS RN NOTE FEVER CAME DOWN TO 100.6, ALSO CHEST XRAY RESULT CAME, INFORMED MD PERKINS. DR PERKINS GAVE NEW ORDERS, ORDER NOTED. AND CARRIED OUT. AMBULANCE PERSONAL ALSO CAME TO LINE O SCRIBE OPERATOR ;THE PT. INFORMED THEM THAT LINE O SCRIBE OPERATOR IS CANCELLED PER . NOTED PT O2 SAT 88% ON ROOM AIR. O2 3L VIA N/C APPLIED O2 SAT CAME BACK UP TO 94%. ALSO REPOSITION HER IN THE BED.
--- NOTE | 2021-01-21 21:44 | NUR ---
MS RN NOTE AMBULANCE PERSONAL LEFT THE ROOM.
--- NOTE | 2021-01-21 21:54 | NUR ---
MS RN NOTE TRIED TO FLUSH THE ROXANA MIDLINE. PT C/O PAIN IN THE MIDLINE AREA. NURSING COLORING ROOM WORKER INFORMED HER FOR THE NEW MID LINE INSERTION.
[2021-01-21] MEDS ORDERED: PIPERACILLIN /TAZOBACTAM 2.25 G in IV D5W 50 ML IV SCH (22:04)
[2021-01-21] MEDS: INSULIN GLARGINE, 100 UNIT/ML CARTRIDGE SQ SCH (23:38)
--- NOTE | 2021-01-21 23:57 | NUR ---
MS RN NOTE CHAN CAME TO INSERT MID LINE TO THE PT AT THIS TIME. ZOSYN WAS HELD BECAUSE NO IV ACCESS EARLIER.
[2021-01-22] MEDS ORDERED: PIPERACILLIN /TAZOBACTAM 2.25 G VIAL IV ONE (00:08)
--- NOTE | 2021-01-22 00:08 | NUR ---
MS RN NOTE ZOSYN 2.25 G IVPB GIVEN. NO S/S OF INFILTRATION NOTED. PT DENIES ANY PAIN.
[2021-01-22 04:00] VITALS: BP 129/51
[2021-01-22] MEDS: BLOOD SUGAR DIAGNOSTIC 1 EACH STRIP IN SCH ×3 (05:38→17:30)
[2021-01-22] MEDS ORDERED: PIPERACILLIN /TAZOBACTAM 2.25 G in IV D5W 50 ML IV SCH (07:00)
--- NOTE | 2021-01-22 07:18 | NUR ---
MS RN NOTE PT IN BED ASLEEP, EASILY AROUSABLE , NO DISTRESS OR DISCOMFORT NOTED. DENIES PAIN. ROXANA MIDLINE I/P. SIDE RAILS UP X 2 AND CALL LIGHT WITHIN REACH. ENDORSE TO DAY SHIFT NURSE FOR CONTINUE TO CARE.
--- NOTE | 2021-01-22 07:30 | NUR ---
RN NOTE PATIENT AWAKE ALERT AND ORIENTED X3 BOTSWANAN SPEAKING, ON O2 VIA NC @ 3LPM, BREATHING EVEN AND UNLABORED, PATIENT INCONTINENT ON BOWEL, ANURIC IN , ON HEMODIALYSIS 01/21 2.4 LITERS REMOVED, WITH RIGHT UPPER ARM MIDLINE NOTED REDNESS AND SWELLING PAINFUL TO TOUCH, WILL NOTIFY PRIMARY, SAFETY MEASURES OBSERVED, BED WHEELS LOCK, CALL LIGHT WITHIN REACH, WILL CONTINUE TO MONITOR.
[2021-01-22] MEDS: CALCIUM ACETATE 667 MG CAP/TAB PO SCH ×3 (07:59→17:30)
[2021-01-22] MEDS: LEVOTHYROXINE SODIUM 50 MCG TABLET PO SCH (07:59)
[2021-01-22 08:00] VITALS: BP 108/46
--- NOTE | 2021-01-22 08:00 | NUR ---
RN NOTE PER PHARMACIST JULIEN RAMSEY TO ADMINISTER 0700 ZOSYN, 0500 ZOSYN NOT ADMINISTERED
--- NOTE | 2021-01-22 08:15 | NUR ---
RN NOTE HOLD ZOSYN AND IV HYDRATION IV PER DR. PERKINS, RIGHT UPPER ARM VENOUS DOPPLER TO RULE OUT DVT.
[2021-01-22] MEDS: PANTOPRAZOLE 40 MG VIAL IV SCH (08:28)
[2021-01-22] MEDS: METOPROLOL TARTRATE 25 MG TABLET PO SCH ×3 (09:00→16:12)
[2021-01-22] MEDS ORDERED: AMOX-430 PO (12:21)
--- NOTE | 2021-01-22 12:56 | NUR ---
RN NOTE HOLD ZOSYN 12 NOON DOSE RIGHT UPPER ARM DVT, START PO ATB.
[2021-01-22] MEDS ORDERED: AMOX/CLAVULANATE 875 MG TABLET PO SCH ×2 (13:00→21:00)
[2021-01-22] MEDS: INSULIN REGULAR, HUMAN 100 UNIT/ML 3 ML VIAL SQ PRN ×2 (13:24→17:30)
--- NOTE | 2021-01-22 13:29 | NUR ---
RN NOTE REMOVE RIGHT UPPER ARM MIDLINE ORDERED.
[2021-01-22] MEDS: DIGOXIN 0.125 MG TABLET PO SCH (13:40)
[2021-01-22 16:00] VITALS: BP 129/55
[2021-01-22 16:12] VITALS: BP 129/55
--- NOTE | 2021-01-22 19:01 | NUR ---
RN NOTE PATIENT AWAKE ALERT AND ORIENTED X3 TUVALUAN SPEAKING, ON O2 VIA NC @ 3LPM, BREATHING EVEN AND UNLABORED, PATIENT INCONTINENT ON BOWEL, ANURIC IN , ON HEMODIALYSIS 01/21 2.4 LITERS REMOVED, WITH RIGHT UPPER ARM DVT, FOR DISCHARGE TONIGHT AFTER HD, REPORT GIVEN TO RN EBONI BOYKIN, WILL NOTIFY PRIMARY, SAFETY MEASURES OBSERVED, BED WHEELS LOCK, CALL LIGHT WITHIN REACH, WILL CONTINUE TO MONITOR. WILL ENDORSE TO NOC SHIFT.
--- NOTE | 2021-01-22 19:30 | NUR ---
RN OPENING NOTE PT RECEIVED IN BED, PT A/O X 4 PT ALBANIAN SPEAKING, MINIMAL [place]. PATTERN PAINTER UTILIZED WHEN NEEDED. CURRENTLY ON HD. TOLERATING WELL. PT IS AFEBRILE. ON 3L OF O2 VIA NC. TOLERATING WELL. NO DISTRESS OR SOB NOTED. PT ON MED SURG MONITORING. LEFT AV FISTULA PRESENT, RIGHT UPPER EXT SWOLLEN, REDNESS NOTED, TENDER WHEN MOVED. NO C/O PAIN. PT SAFETY MEASURES IN PLACE. HOB ELEVATED. SIDE RAILS UP X3 BED LOCKED IN LOWEST POSITION, BED ALARM ON. CALL LIGHT WITHIN REACH.
--- NOTE | 2021-01-22 20:11 | NUR ---
RN NOTE ORDERS FROM MD PERKINS, PT IS TO BE ON REGULAR DIET AND PROTONIX TO PO. ORDERS CARRIED OUT.
--- NOTE | 2021-01-22 20:32 | NUR ---
RN NOTE 1L REMOVED FROM HD
[2021-01-22] MEDS ORDERED: PANTOPRAZOLE 40 MG TABLET.DR PO SCH (21:00)
--- NOTE | 2021-01-22 21:25 | NUR ---
RN NOTES: PATIENT DISCHARGED 2124 [facility]IA [facility], LEFT IN STABLE CONDITION. REPORT WAS GIVEN TO Rosangela PARADA AND Rosangela MARTINEZ, ALL PATIENT BELONGINGS SENT WITH PATIENT, WRISTBAND TAKEN OFF. UPDATED REPORT GIVEN TO EBONI FROM [facility]
== END 2021-01-22 21:25 | DRG 254 ==
LOC: ER 02:43 → TELE1 06:04 → MEDSG1 01-20 10:54
PROVIDERS: ADMIT Internal Medicine; ATTEND Internal Medicine
PROC: 30233N1 Transfusion of Nonautologous Red Blood Cells into Peripheral Vein, Percutaneous Approach (ICD-10-PCS; 2021-01-17)
PROC: 5A1D70Z Performance of Urinary Filtration, Intermittent, Less than 6 Hours Per Day (ICD-10-PCS; 2021-01-17)
PROC: 05HD33Z Insertion of Infusion Device into Right Cephalic Vein, Percutaneous Approach (ICD-10-PCS; 2021-01-17)
PROC: 0W3P8ZZ Control Bleeding in Gastrointestinal Tract, Via Natural or Artificial Opening Endoscopic (ICD-10-PCS; principal; 2021-01-20)
PROC: 05H933Z Insertion of Infusion Device into Right Brachial Vein, Percutaneous Approach (ICD-10-PCS; 2021-01-22)
DX: K63.81 Dieulafoy lesion of intestine (principal); J69.0 Pneumonitis due to inhalation of food and vomit; I12.0 Hypertensive chronic kidney disease with stage 5 chronic kidney disease or end stage renal disease; D68.9 Coagulation defect, unspecified; E46 Unspecified protein-calorie malnutrition; D62 Acute posthemorrhagic anemia; N18.6 End stage renal disease; E11.22 Type 2 diabetes mellitus with diabetic chronic kidney disease; I48.20 Chronic atrial fibrillation, unspecified; D50.9 Iron deficiency anemia, unspecified; E03.9 Hypothyroidism, unspecified; E78.5 Hyperlipidemia, unspecified; Z99.2 Dependence on renal dialysis; Z20.822 Contact with and (suspected) exposure to COVID-19; Z79.01 Long term (current) use of anticoagulants; E87.5 Hyperkalemia; H54.7 Unspecified visual loss; Z79.890 Hormone replacement therapy; Z79.899 Other long term (current) drug therapy; Z79.4 Long term (current) use of insulin
CPT/HCPCS: 36410; 36415; 71045-TC; 80048-TC; 80076-TC; 82962-TC; 83690-TC; 83735-TC; 84100-TC; 84484-TC; 85025-TC; 85027-TC; 85730-TC; 86706; 86850-TC; 87081-TC; 87340; 90935-TC; 93971-TC; A6403; C9113; C9803; G0378; J0282; J1815; J2543; J2704; J2916; J3490; J7030; J7040; J7050; J7060; P9016; U0003